=== PATIENT | female | born 2000 | race Two or more races ===

== ENCOUNTER 2025-04-18 14:43 | Emergency (ER) | payer MEDICAID, SELFPAY ==
[2025-04-18 15:04] VITALS: BP 107/73; PULSE 90; RESP 18; TEMP 37; O2SAT 95
--- NOTE | 2025-04-18 15:08 | XR_ITS ---
Examination: CT abdomen and pelvis without contrast. Coronal 3-D reconstructions. Sagittal 2-D reconstructions. Date and time of exam:April 18, 2025, 1716 hrs. Indications: Left-sided flank pain with nausea today CTDI: vol (mGy): 7.51 DLP: (mGycm): 440 Technique: Axial images of the abdomen have been obtained, 3 mm slice thickness Intravenous contrast material has not been administered. Low dose protocols were performed. One or more of the following dose reduction techniques were used; automated exposure control, adjustment of the mA and/or KV according to patient size, use of iterative reconstruction technique. Findings: No focal liver or splenic lesions No gallstones No common bile duct stones No renal or ureteral calculi, no hydronephrosis No perinephric stranding Aorta normal size. 12 mm fat-containing umbilical hernia Normal appendix No bowel obstruction or diverticulitis No bladder mass or bladder calculi No uterine mass Suspicious for 24 mm left adnexal cyst Impression: No renal or ureteral calculi, no hydronephrosis Normal appendix Suspicious for 24 mm left adnexal cyst, consider pelvic sonography follow-up
[2025-04-18 15:25] LABS: Basophils # (Auto) 0.0 Thou/mm3 (0.0-0.2); Basophils % (Auto) 0 % (0-2.5); Eosinophils # (Auto) 0.1 Thou/mm3 (0.0-0.5); Eosinophils % (Auto) 2 % (0-10); Hematocrit 38.2 % (36.0-46.0); Hemoglobin 13.1 g/dL (12.0-16.0); Immature Granulocytes Auto 0.02 Thou/mm3 (0.00-0.00); Lymphocytes # (Auto) 1.9 Thou/mm3 (1.0-4.8); Lymphocytes % (Auto) 28 % (10-50); Mean Corpuscular HGB Conc 34.3 g/dl (31.0-37.0); Mean Corpuscular Hemoglobin 32.8 pg (25.0-35.0); Mean Corpuscular Volume 96 fL (80-100); Monocytes # (Auto) 0.5 Thou/mm3 (0.0-0.8); Monocytes % (Auto) 8 % (0-12); Neutrophils # (Auto) 4.2 Thou/mm3 (1.8-7.7); Neutrophils % (Auto) 63 % (37-80); Nucleated Red Blood Cell # 0.00 Thou/mm3 (0.00-0.00); Nucleated Red Blood Cell % 0 /100 WBC (0); Platelet Count 234 Thou/mm3 (140-440); RDW Standard Deviation 42.8 fL (36.4-46.3); Red Blood Count 4.00 Miln/mm3 (4.00-5.20); White Blood Count 6.8 Thou/mm3 (3.6-11.0)
[2025-04-18 15:35] LABS: Collection Type, Urine Clean Catch
[2025-04-18 15:39] LABS: Bilirubin,Urine Negative (Negative); Blood,Urine 3+ (Negative); Clarity,Urine Clear (Clear/Hazy); Color,Urine Lt-Yellow (Lt Yel-Yel); Glucose, Urine Negative (Negative); Ketones,Urine Negative (Negative); Leukocyte Esterase,Urine Positive (Negative); Nitrite,Urine Negative (Negative); PH,Urine 6.0 (5.0-7.0); Protein,Urine Trace (Neg - Trace); RBC,Urine 12 /hpf (0-3); Specific Gravity,Urine 1.029 (1.001-1.035); Squamous Epithelial Cell,Urine 6 /hpf (0-5); Urobilinogen,Urine Negative mg/dL (0.0-1.0); WBC,Urine 1 /hpf (0-5)
[2025-04-18 15:39] LABS: Alanine Aminotransferase 14 U/L (10-49); Albumin, Serum 4.6 gm/dL (3.5-5.0); Albumin/Globulin Ratio 1.6 (1.2-2.2); Alkaline Phosphatase 81 U/L (46-116); Anion Gap 9 (7-16); Aspartate Amino Transferase 21 U/L (0-34); BUN/Creatinine Ratio 14 Ratio (12-20); Bilirubin,Total 0.4 mg/dL (0.3-1.2); Blood Urea Nitrogen 13 mg/dL (9-23); Calcium 9.4 mg/dL (8.3-10.6); Calcium (Corrected) 9.4 mg/dL (8.5-10.1); Carbon Dioxide 24.1 mMol/L (20.0-31.0); Chloride 110 mMol/L (98-107); Creatinine (Component) 0.9 mg/dL (0.6-1.3); Globulin 2.8 gm/dL (2.3-3.5); Glucose 123 mg/dL (74-106); Lipase 36 U/L (12-53); Osmolality,Calculated 286 (275-295); Potassium 3.7 mMol/L (3.4-5.1); Sodium 143 mMol/L (136-145); Total Protein 7.4 gm/dL (5.7-8.2); eGFR > 60 See Note
[2025-04-18 15:44] LABS: HCG Qualitative,Urine Negative
[2025-04-18] MEDS: MG HYD/AL HYD/SIME (Maalox Reg) SUSP 30 ML UDC PO (15:47)
--- NOTE | 2025-04-18 17:23 | PD.EDRME ---
Rapid Medical Screening Exam RME Arrival date/time: 04/18/25 14:43 25-year-old female with no known medical history presents to the emergency room with a chief complaint of diffuse 8 out of 10 abdominal pain x 2 days I have greeted and performed a focused initial assessment of this patient. A comprehensive ED assessment and evaluation of the patient, analysis of all test results, and completion of the medical decision making process will be conducted by additional ED providers. Chief Complaint: General Adult/Misc Complain Time Seen by Provider: 04/18/25 14:55 Vital signs: Vital Signs Temperature 98.6 F 04/18/25 15:04 Pulse Rate 90 04/18/25 15:04 Respiratory Rate 18 04/18/25 15:04 Blood Pressure 107/73 04/18/25 15:04 Pulse Oximetry (%) 95 04/18/25 15:04 Oxygen Delivery Method Room Air 04/18/25 15:04 Vital signs reviewed by provider: Yes
[2025-04-18 18:24] VITALS: BP 124/66; PULSE 88; RESP 18; TEMP 36.9; O2SAT 99
--- NOTE | 2025-04-18 18:38 | EDNOTE_ITS ---
ED General RME/HPI General Chief complaint: General Adult/Misc Complain Stated complaint: PAIN L) RIBS UP TO L) SHOULDER Time Seen by Provider: 04/18/25 14:55 Arrival date/time: 04/18/25 14:43 CC: Left upper quadrant and left lateral stomach pain HPI onset 2 days ago progressive increase in severity absent at nighttime worse after meals started Off-Ezy is now become stronger has had prior history of similar events. Patient denies any nausea or vomiting. No other complaints at this time including painful urination bloody urination nausea vomiting diarrhea. RME / HPI RME / HPI narrative: 04/18/25 14:43 25-year-old female with no known medical history presents to the emergency room with a chief complaint of diffuse 8 out of 10 abdominal pain x 2 days I have greeted and performed a focused initial assessment of this patient. A co mprehensive ED assessment and evaluation of the patient, analysis of all test results, and completion of the medical decision making process will be conducted by additional ED providers. Related Data Home Medications ?Medication ?Instructions ?Recorded ?Confirmed prenat.vits,niles,ack-xyud-btuki 1 tab PO QDAY 04/16/23 04/16/23 Previous Rx's ?Medication ?Instructions ?Recorded pantoprazole 20 mg tablet,delayed 20 mg PO QDAY #20 ta bs 04/18/25 release (Protonix) Allergies Allergy/AdvReac Type Severity Reaction Status Date / Time No Known Allergies Allergy Verified 04/18/25 14:50 Review of Systems Review of Systems Narrative Review of Systems: GEN: No fever, no chills, no weight loss EYES: No discharge, no visual changes, no pain HEENT: No ear pain, no congestion, no sore throat PULM: No shortness of breath, no cough, no congestion CV: No chest pain, no dyspnea on exertion, no palpitations GI: No nausea, no vomiting, no diarrhea, + pain, no constipation : No frequency, no urgency, no dysuria MUSC/SKEL: No joint pain, no back pain SKIN: No rash PSYCH: No hallucinations, no depression HEME/LYMPH: No easy bleeding or bruising tendencies NEURO: No weakness, no headache Past Medical History Past Medical History NEUROLOGIC: Negative Neurological Disorders CARDIAC: Negative Cardiac Disorders or Congestive Heart Failure RESPIRATORY: Negative Chronic Obstructive Pulmonary Disease (COPD) GASTROINTESTINAL: Negative Gastrointestinal Disorders GENITOURINARY: Negative Genitourinary Disorders or Renal Disease REPRODUCTIVE: Positive Previous Pregnancies; Negative Pelvic Inflammatory Disease MUSCULOSKELETAL: Negative Musculoskeletal Disorders ENDOCRINE: Negative Endocrine Disorders, Diabetes Mellitus Type 1 or Diabetes Mellitus Type 2 HEMATOLOGIC: Negative Blood Disorders or Anemia OTHER HISTORY: Negative Autoimmune Disease, Blood Transfusions, Blood Transfusion Reaction, Anesthesia Reactions, MRSA, VRSA, Vancomycin-Resistant Enterococci, Clostridium Difficile or Cancer Family History FAMILY HISTORY: Negative Family Psychiatric Problems, Family Respiratory Di sorders, Family Cardiac Disorders or Family Gastrointestinal Problems Surgical History SURGICAL: Negative Section Social History SMOKING STATUS: Never smoker ED Exam Narrative Physical exam: [General: In mild to comfort not in any acute distress Head normocephalic HEENT: Eyes pupils are PERRLA EOMs are intact mouth pink moist membranes uvula is midline swallow symmetrical phonation is normal. All the subsystems of HEENT are within acceptable limits Neck is supple nontender Chest equal chest rise nontender to palpation Respiratory: Clear to auscultation no wheezes crackles or rubs CV: Rate rhythm is regular no murmurs rubs or clicks Abdomen tenderness to palpation of the left upper quadrant with no reflexive guarding or rebound tenderness no epigastric right upper or lower quadrant tenderness with palpation positive bowel sounds in all 4 quadrants. Back: No CVA tenderness no spinous process tenderness from cervical spine thoracic and lumbar spine Skin: Intact no petechiae rash induration ulceration or crepitus Extremities: Moving all extremity against resistance cap refill less than 2 seconds neurosensory intact Neuro: Awake alert oriented x3 Glascow coma 15 no focal deficits] Course Course Course Narrative: Given the history of the pain cycles and it is worse after meals and absent nighttime I suspect that this is reflux disease patient will be given Protonix started in today to be on a bland diet if there is a worsening symptoms she can return the emergency room medially for further evaluation. Quality Measures none Orders Category Date Time Status CT abdomen pelvis wo con Stat Exams 04/18/25 15:08 Completed CBC Stat Lab 04/18/25 15:14 Completed CMP [Comprehensive Metabolic Panel] Stat Lab 04/18/25 15:14 Completed HCG Qualitative,Urine Stat Lab 04/18/25 15:27 Completed Lipase Stat Lab 04/18/25 15:14 Completed UA [Urinalysis] Stat Lab 04/18/25 15:27 Completed Urine Culture Stat Lab 04/18/25 15:27 Received Pantoprazole [Protonix] Med 04/18/25 18:37 Once 40 mg PO X1 ONE mg Hyd/Al Hyd/Shawn Susp [Maalox Susp] Med 04/18/25 15:08 Discontinued 30 ml PO X1 ONE Vital Signs Vital signs: Vital Signs Temperature 98.6 F 04/18/25 15:04 Pulse Rate 90 04/18/25 15:04 Respiratory Rate 18 04/18/25 15:04 Blood Pressure 107/73 04/18/25 15:04 Pulse Oximetry (%) 95 04/18/25 15:04 Oxygen Delivery Method Room Air 04/18/25 15:04 Discharge Plan Plan Patient Disposition: HOME (Self Care) Patient condition on transfer: Stable Prescriptions/Referrals Prescriptions/Med Rec: New pantoprazole [Protonix] 20 mg tablet,delayed release (DR/EC) 20 mg PO QDAY Qty: 20 0RF No Action Vitamin Tablet 1 tab PO QDAY Referrals: Sergio Elias MD [Primary Care Provider, Family Practice] - In 1 week Problem List Clinical Impression: Abdominal pain, left upper quadrant, Acid reflux Patient/Caregiver Discharge Instructions Education Materials: Abdominal Pain, ED Diet, [place] (Adult), ED GERD (Adult) Print Language: Guamanian Stand Alone Forms: Brandie Award Info., Patient Portal Info Letter, Work/School Release PA/SCREW MACHINE HAND Supervising Physician PA/SCREW MACHINE HAND Supervising Physician: Og Moreland ENP [facility] Clinical Information Provided by: patient Medical Records reviewed [facility] Meds/Rx considered, not ordered None Labs/Rad/Tests considered, not ordered None Chronic Illness/Social Conditions which may negatively complicate care or outcome(s)-explain: None or not applicable EKG EKG not done Labs Labs: interpreted by [facility] Lab(s) Interpretation(s): CBC shows no acute leukocytosis anemia thrombocytopenia CMP shows a chloride of 110 glucose of 123 no other electrolyte imbalances renal impairment transaminitis or T. bili elevation. Urine is a contaminated catch but no indications of urinary tract infection. Lipase is within acceptable limits. Imaging Imaging interpretation: none Medication Administration(s) none Medication Administration History Pantoprazole Sodium (Pantoprazole 40 Mg Tablet) 40 mg PO X1 ONE Stop: 04/18/25 18:38 Discontinued Medications Al Hydrox/Mg Hydrox/Simethicone (Mg Hyd/Al Hyd/Shawn (Maalox Reg) Susp 30 Ml Udc) 30 ml PO X1 ONE Stop: 04/18/25 15:09 Last Admin: 04/18/25 15:47 Dose: 30 ml Documented By: OA Diagnosis Differential Diagnosis ED Complaint MDM: Gastritis cholelithiasis pancreatitis
== END 2025-04-18 19:04 | disposition home or self-care (01) ==
PROVIDERS: Nurse Practitioner Family; Emergency Provider Emergency Medicine; PCP Family Medicine
DX: K21.9 Gastro-esophageal reflux disease without esophagitis (principal); R10.12 Left upper quadrant pain
CPT/HCPCS: 36415; 74176; 80053; 81001; 81025; 83690; 85025; 87086; 99284; A9270